=== PATIENT | female | born 1955 | race Caucasian/White ===

== ENCOUNTER 2018-04-06 13:09 | Emergency (ER) | payer OTHER ==
[~2018-04-06] VITALS: Ht 154.9 cm; Wt 69.9 kg
[~2018-04-06 13:09] MED LIST: ABILIFY5 MG; ASPIRIN EC81 MG; DEPAKOTE ER500 MG; INDOMETHACIN25 MG; LAMICTAL ODT100 MG; LEVOTHROID50 MCG; LITHIUM CARBON450 MG; MIRALAX119 GM; NEURONTIN100 MG; SAPHRIS10 MG; VIVELLE-DOT1 EAC1
[2018-04-06 14:37] LABS: BASOPHILS # (AUTO) 0.1 (0.0-0.1); BASOPHILS % 0.7 % (0.0-1.0); EOSINOPHILS # (AUTO) 0.4 (0.0-0.4); EOSINOPHILS % 5.1 % (0.0-6.0); HEMATOCRIT 41.5 % (34.2-44.1); HEMOGLOBIN 13.4 g/dL (12.0-16.0); LYMPHOCYTES # (AUTO) 2.1 (1.0-3.2); LYMPHOCYTES % 26.1 % (18.0-39.1); MEAN CORPUSCULAR HGB CONC 32.3 g/dL (31-35); MEAN CORPUSCULAR VOLUME 86.6 fL (81-99); MONOCYTES # (AUTO) 0.8 (0.2-0.8); MONOCYTES % 9.3 % (4.4-11.3); NEUTROPHILS # (AUTO) 4.7 (2.1-6.9); NEUTROPHILS % 58.1 % (38.7-80.0); PLATELET COUNT 268 x10e3/uL (140-360); RED BLOOD COUNT 4.79 x10e6/uL (3.6-5.1); RED CELL DISTRIBUTION WIDTH 14.6 % (11.7-14.4)
[2018-04-06 14:40] LABS: BILIRUBIN,URINE NEGATIVE (NEGATIVE); CLARITY,URINE CLEAR (CLEAR); COLOR,URINE YELLOW (YELLOW); KETONES,URINE NEGATIVE (NEGATIVE); LEUKOCYTE ESTERASE ,URINE NEGATIVE (NEGATIVE); NITRITE,URINE NEGATIVE (NEGATIVE); PROTEIN,URINE DIPSTICK NEGATIVE (NEGATIVE); URINE UROBILINOGEN 0.2 mg/dL (0.2 - 1)
[2018-04-06 14:45] LABS: INR 0.97; PROTHROMBIN TIME 12.1 seconds (11.9-14.5)
[2018-04-06 14:46] LABS: PARTIAL THROMBOPLASTIN TIME 34.8 seconds (23.8-35.5)
[2018-04-06 14:50] LABS: BACTERIA,URINE FEW /HPF; EPITHELIAL CELLS,URINE FEW /LPF; MUCUS,URINE FEW (RARE); RBC,URINE 0-5 /HPF (0-5); WBC,URINE (MAN) 0-5 /HPF (0-5)
[2018-04-06 14:52] LABS: ALBUMIN 4.1 g/dL (3.5-5.0); ALBUMIN/GLOBULIN RATIO 1.3 (0.8-2.0); ANION GAP 13.4 mmol/L (8-16); CREATININE, SERUM 1.08 mg/dL (0.57-1.11); POTASSIUM 4.4 mmol/L (3.5-5.1)
[2018-04-06 14:59] LABS: CREATINE KINASE MB 3.6 ng/mL (0-5.0)
--- NOTE | 2018-04-06 15:36 | Diagnostic Imaging Report ---
PROCEDURE: A single AP view of the chest. COMPARISON: [facility], , CHEST SINGLE (PORTABLE), 10/28/2013, 23:42. INDICATIONS: SHORTNESS OF BREATH, IRREGULAR EKG FINDINGS: Lines/tubes: None. Lungs: The lungs are well inflated and clear. There is no evidence of pneumonia or pulmonary edema. Pleura: There is no pleural effusion or pneumothorax. Heart and mediastinum: The heart and the mediastinum are unremarkable. Bones: No acute bony abnormality. IMPRESSION: 1. No acute cardiopulmonary abnormalities. Tang Murry M.D. Dictated by: Tang Murry M.D. on 04/06/2018 at 15:42 Electronically approved by: Tang Murry M.D. on 04/06/2018 at 15:42
== END 2018-04-06 16:51 | disposition home or self-care (01) ==
LOC: ER 13:09
DX: R06.00 Dyspnea, unspecified (principal); I45.10 Unspecified right bundle-branch block
CPT/HCPCS: 36415; 71045; 80053; 81001; 82550; 82553; 83880; 84484; 85025; 85379; 85610; 85730; 87086; 93005; 99284

== ENCOUNTER 2022-04-15 09:12 | Emergency (ER) | payer MEDICARE, OTHER ==
[~2022-04-15] VITALS: Ht 154.9 cm; Wt 69.9 kg
== END 2022-04-15 12:13 | disposition home or self-care (01) ==
LOC: ER 09:16
DX: S00.03XA Contusion of scalp, initial encounter (principal); S30.0XXA Contusion of lower back and pelvis, initial encounter; W01.0XXA Fall on same level from slipping, tripping and stumbling without subsequent striking against object, initial encounter; Y92.098 Other place in other non-institutional residence as the place of occurrence of the external cause; I10 Essential (primary) hypertension; E78.5 Hyperlipidemia, unspecified; E03.9 Hypothyroidism, unspecified; F31.9 Bipolar disorder, unspecified
CPT/HCPCS: 70450; 72170; 72220; 99283

== ENCOUNTER 2024-11-19 12:32 | Emergency (ER) | payer MEDICARE ==
[~2024-11-19] VITALS: Ht 149.9 cm; Wt 72.6 kg
[~2024-11-19 12:32] MED LIST changes: +KETOROLAC TROME10 MG PO; +MEDROL4 M2 PO; +PREDNISONE20 MG PO
[2024-11-19 13:05] VITALS: TEMP 98
[2024-11-19 13:19] LABS: BASOPHILS % 0.6 % (0.0-1.0); EOSINOPHILS # (AUTO) 0.4 (0.0-0.4); EOSINOPHILS % 5.6 % (0.0-6.0); HEMATOCRIT 40.3 % (34.2-44.1); HEMOGLOBIN 13.2 g/dL (12.0-16.0); LYMPHOCYTES # (AUTO) 2.2 (1.0-3.2); LYMPHOCYTES % 30.1 % (18.0-39.1); MEAN CORPUSCULAR HEMOGLOBIN 28.2 pg (28-32); MEAN CORPUSCULAR HGB CONC 32.8 g/dL (31-35); MEAN CORPUSCULAR VOLUME 86.1 fL (81-99); MONOCYTES # (AUTO) 0.7 (0.2-0.8); MONOCYTES % 9.9 % (4.4-11.3); NEUTROPHILS # (AUTO) 3.8 (2.1-6.9); PLATELET COUNT 275 x10e3/uL (140-360); RED BLOOD COUNT 4.68 x10e6/uL (3.6-5.1); RED CELL DISTRIBUTION WIDTH 13.7 % (11.7-14.4); WHITE BLOOD COUNT 7.14 x10e3/uL (4.8-10.8)
[2024-11-19 13:44] LABS: ALBUMIN 4.2 g/dL (3.5-5.0); ALBUMIN/GLOBULIN RATIO 1.4 (0.8-2.0); ANION GAP 17.3 mmol/L (8-16); BILIRUBIN,TOTAL 0.3 mg/dL (0.2-1.2); CALCIUM 9.6 mg/dL (8.4-10.2); CREATININE, SERUM 1.07 mg/dL (0.57-1.11); POTASSIUM 4.3 mmol/L (3.5-5.1); TOTAL PROTEIN 7.1 g/dL (6.5-8.1)
[2024-11-19 13:49] LABS: TROPONIN I 0.009 ng/mL (0-0.300)
[2024-11-19] MEDS ORDERED: MECLIZINE HCL12.5 MG PO (14:14)
[2024-11-19] MEDS: MECLIZINE HCL 12.5 MG TAB PO ONE (14:24)
[2024-11-19 14:25] VITALS: PULSE 70; RESP 16; O2SAT 99
== END 2024-11-19 15:14 | disposition home or self-care (01) ==
LOC: ER 12:44
DX: R42 Dizziness and giddiness (principal); I10 Essential (primary) hypertension; E78.5 Hyperlipidemia, unspecified; E03.9 Hypothyroidism, unspecified; F31.9 Bipolar disorder, unspecified; R94.31 Abnormal electrocardiogram [ECG] [EKG]
CPT/HCPCS: 36415; 70450; 71045; 80053; 84484; 85025; 93005; 99283; J8597

== ENCOUNTER 2025-03-21 11:29 | Emergency (ER) | payer MEDICARE ==
[~2025-03-21] VITALS: Ht 149.9 cm; Wt 64.4 kg
[~2025-03-21 11:29] MED LIST changes: +MECLIZINE HCL12.5 MG PO
[2025-03-21 11:43] VITALS: PULSE 95; RESP 18; TEMP 98.6
[2025-03-21 14:30] VITALS: BP 150/97; PULSE 71; RESP 18; O2SAT 100
== END 2025-03-21 14:30 | disposition home or self-care (01) ==
LOC: ER 12:19
DX: S00.83XA Contusion of other part of head, initial encounter (principal); W18.09XA Striking against other object with subsequent fall, initial encounter; Y92.89 Other specified places as the place of occurrence of the external cause; I10 Essential (primary) hypertension; E78.5 Hyperlipidemia, unspecified; E03.9 Hypothyroidism, unspecified; F31.9 Bipolar disorder, unspecified
CPT/HCPCS: 70450; 72125; 72192; 99283